=== PATIENT | male | born 1945 | race Caucasian/White ===

== ENCOUNTER 2016-05-29 21:13 | Emergency (ER) | payer MEDICARE, OTHER ==
[~2016-05-29 21:13] MED LIST: COUMADIN2.5 MG PO; LOPRESSOR 225 MG/TAB PO; WARFARIN SOD5 MG PO; ZOCOR 40MG40 MG PO
== END 2016-05-29 23:15 | disposition home or self-care (01) ==
LOC: ED 21:13
DX: I48.91 Unspecified atrial fibrillation (principal); R07.9 Chest pain, unspecified; I10 Essential (primary) hypertension; Z87.891 Personal history of nicotine dependence

== ENCOUNTER → 2016-05-30 | Outpatient (CLI) | payer MEDICARE, OTHER | LOC: VAS 16:08 | DX: R07.89 Other chest pain (principal); I36.1 Nonrheumatic tricuspid (valve) insufficiency ==

== ENCOUNTER → 2016-06-07 | Outpatient (CLI) | payer MEDICARE, OTHER | LOC: CARDREHAB 09:47 | DX: R07.89 Other chest pain (principal); E78.5 Hyperlipidemia, unspecified; Z82.49 Family history of ischemic heart disease and other diseases of the circulatory system; Z87.891 Personal history of nicotine dependence; I20.8 Other forms of angina pectoris; R06.00 Dyspnea, unspecified; I48.91 Unspecified atrial fibrillation; I45.19 Other right bundle-branch block | CPT/HCPCS: A9500 ==

== ENCOUNTER → 2016-06-17 | Outpatient (CLI) | payer MEDICARE | LOC: LAB 13:36 | DX: Z51.81 Encounter for therapeutic drug level monitoring (principal); Z79.01 Long term (current) use of anticoagulants; I48.1 Persistent atrial fibrillation ==

== ENCOUNTER → 2016-07-29 | Outpatient (CLI) | payer MEDICARE | LOC: LAB 08:41 | DX: Z51.81 Encounter for therapeutic drug level monitoring (principal); Z79.01 Long term (current) use of anticoagulants; I48.91 Unspecified atrial fibrillation ==

== ENCOUNTER → 2016-08-27 | Outpatient (CLI) | payer MEDICARE | LOC: LAB 10:10 | DX: Z51.81 Encounter for therapeutic drug level monitoring (principal); Z79.01 Long term (current) use of anticoagulants; I48.91 Unspecified atrial fibrillation ==

== ENCOUNTER → 2016-10-04 | Outpatient (CLI) | payer MEDICARE ==
[2016-05-29 23:15] VITALS: BP 110/82
== END ==
LOC: LAB 10:26
DX: Z51.81 Encounter for therapeutic drug level monitoring (principal); Z79.01 Long term (current) use of anticoagulants; I48.91 Unspecified atrial fibrillation

== ENCOUNTER → 2016-11-01 | Outpatient (CLI) | payer MEDICARE ==
[2016-05-29 23:15] VITALS: BP 110/82
== END ==
LOC: LAB 14:51
DX: Z51.81 Encounter for therapeutic drug level monitoring (principal); Z79.01 Long term (current) use of anticoagulants; I48.91 Unspecified atrial fibrillation

== ENCOUNTER → 2016-12-03 | Outpatient (CLI) | payer MEDICARE ==
[2016-05-29 23:15] VITALS: BP 110/82
== END ==
LOC: LAB 15:27
DX: G62.9 Polyneuropathy, unspecified (principal); I48.91 Unspecified atrial fibrillation

== ENCOUNTER → 2017-01-15 | Outpatient (CLI) | payer MEDICARE ==
[2016-05-29 23:15] VITALS: BP 110/82
== END ==
LOC: LAB 08:54
DX: I48.91 Unspecified atrial fibrillation (principal)

== ENCOUNTER → 2017-02-24 | Outpatient (CLI) | payer MEDICARE ==
[2016-05-29 23:15] VITALS: BP 110/82
== END ==
LOC: LAB 08:20
DX: I48.91 Unspecified atrial fibrillation (principal)

== ENCOUNTER → 2017-04-04 | Outpatient (CLI) | payer MEDICARE ==
[2016-05-29 23:15] VITALS: BP 110/82
[2017-04-04 09:12] LABS: PROTHROMBIN TIME 24.3 SECONDS (9.0-12.0)
== END ==
LOC: LAB 08:28
PROVIDERS: Internal Medicine
DX: I48.91 Unspecified atrial fibrillation (principal)

== ENCOUNTER → 2017-05-02 | Outpatient (CLI) | payer MEDICARE ==
[2016-05-29 23:15] VITALS: BP 110/82
[2017-05-02 11:30] LABS: PROTHROMBIN TIME 23.3 SECONDS (9.0-12.0)
== END ==
LOC: LAB 11:03
PROVIDERS: Internal Medicine
DX: I48.91 Unspecified atrial fibrillation (principal)

== ENCOUNTER → 2017-05-20 | Outpatient (CLI) | payer MEDICARE, OTHER ==
[~2017-05-20] VITALS: Ht 188 cm; Wt 86.4 kg
[~2017-05-20] MED LIST changes: +BREO ELLIPTA1 POW IH; +CARTIA XT180 MG PO; +RT SPIRIVA INH18 MCG IH
[2017-05-20 08:47] LABS: HEMATOCRIT 44.7 % (42.0-52.0); HEMOGLOBIN 14.2 g/dL (13.5-18.0); MEAN CELL VOLUME 98 fl (78-100); MEAN CORPUSCULAR HEMOGLOBIN 31 pg (27-31); MEAN CORPUSCULAR HGB CONC 32 g/dL (33-37); MEAN PLATELET VOLUME 10.9 fl (7.4-10.4); PLATELET COUNT 228 K/mm3 (130-400); RED BLOOD COUNT 4.55 M/mm3 (4.20-5.60); RED CELL DISTRIBUTION WIDTH 12.9 % (11.5-14.5); WHITE BLOOD COUNT 6.7 K/mm3 (4.8-10.8)
[2017-05-20 09:00] LABS: LYMPHOCYTE 16 % (20-51); MONOCYTE 12 % (3-10); NEUTROPHILS 72 % (42-75)
[2017-05-20 12:45] VITALS: BP 143/97
== END ==
LOC: AMSURD 08:21 → RAD 08:21
PROVIDERS: Nurse Practitioner Family
DX: R05 Cough (principal); R53.81 Other malaise; R06.02 Shortness of breath; R79.89 Other specified abnormal findings of blood chemistry

== ENCOUNTER → 2017-05-27 | Outpatient (CLI) | payer MEDICARE, OTHER ==
[2017-05-20 12:45] VITALS: BP 143/97
[2017-05-27 10:49] LABS: PROTHROMBIN TIME 18.5 SECONDS (9.0-12.0)
[2017-05-27 10:50] LABS: BUN/CREATININE RATIO 16.9 (6.0-26.0); CALCIUM 9.3 mg/dL (8.4-10.2); POTASSIUM 4.7 mmol/L (3.6-5.0)
== END ==
LOC: LAB 10:09
PROVIDERS: Nurse Practitioner Family
DX: I50.9 Heart failure, unspecified (principal)

== ENCOUNTER → 2017-07-04 | Outpatient (CLI) | payer MEDICARE, OTHER ==
[2017-05-20 12:45] VITALS: BP 143/97
[2017-07-04 14:59] LABS: PROTHROMBIN TIME 28.8 SECONDS (9.0-12.0)
== END ==
LOC: LAB 11:54
PROVIDERS: Internal Medicine
DX: I48.91 Unspecified atrial fibrillation (principal); Z88.0 Allergy status to penicillin

== ENCOUNTER 2017-08-20 15:06 | Outpatient (RCR) | payer MEDICARE, OTHER ==
[2017-05-20 12:45] VITALS: BP 143/97
[~2017-08-20 15:06] MED LIST changes: +BREO ELLIPTA 21 EACH IH; -BREO ELLIPTA1 POW IH
[2017-09-12] MEDS ORDERED: TUSSIONEX PENN115 ML PO (06:03)
[2017-09-12] MEDS ORDERED: TESSALON PERLE100 M1 PO (06:03)
[2017-11-02] MEDS ORDERED: CLOPIDOGREL75 M2 PO (16:11)
[2017-11-02] MEDS ORDERED: LISINOPRIL2.5 MG PO (16:13)
[2017-11-02] MEDS ORDERED: PROAIR HFA0.09 MG/AC IH (16:14)
[2017-11-02] MEDS ORDERED: ADULT ASPIRIN81 MG PO (16:14)
[2017-11-02] MEDS ORDERED: TYLENOL PM EXTR1 TA1 PO (16:17)
[2017-11-02] MEDS ORDERED: PEPCID 20MG TAB20 MG PO (16:17)
[2017-11-02] MEDS ORDERED: PERCOCET 325 MG1 TA2 PO (17:51)
[2017-11-02] MEDS ORDERED: CYCLOBENZAPRINE10 M1 PO (17:51)
== END 2017-11-18 | disposition home or self-care (01) ==
LOC: CARDREHAB
DX: Z48.812 Encounter for surgical aftercare following surgery on the circulatory system (principal); Z95.2 Presence of prosthetic heart valve

== ENCOUNTER → 2017-08-21 | Outpatient (CLI) | payer MEDICARE, OTHER ==
[2017-05-20 12:45] VITALS: BP 143/97
[~2017-08-21] MED LIST changes: -BREO ELLIPTA 21 EACH IH; +BREO ELLIPTA1 POW IH
== END ==
LOC: VAS 16:01
DX: I34.0 Nonrheumatic mitral (valve) insufficiency (principal); I77.1 Stricture of artery

== ENCOUNTER → 2017-09-02 | Outpatient (CLI) | payer MEDICARE, OTHER ==
[2017-05-20 12:45] VITALS: BP 143/97
[2017-09-02 20:28] LABS: PROTHROMBIN TIME 22.3 SECONDS (9.0-12.0)
== END ==
LOC: LAB 14:58
PROVIDERS: Internal Medicine
DX: I48.1 Persistent atrial fibrillation (principal)

== ENCOUNTER → 2017-09-10 | Outpatient (CLI) | payer MEDICARE, OTHER ==
[2017-05-20 12:45] VITALS: BP 143/97
[~2017-09-10] MED LIST changes: +TESSALON PERLE100 M1 PO; +TUSSIONEX PENN115 ML PO
== END ==
LOC: LAB 14:51
DX: R91.1 Solitary pulmonary nodule (principal)

== ENCOUNTER 2017-09-12 04:30 | Emergency (ER) | payer MEDICARE, OTHER ==
[~2017-09-12] VITALS: Ht 188 cm; Wt 86.4 kg
[~2017-09-12 04:30] MED LIST changes: -TESSALON PERLE100 M1 PO; -TUSSIONEX PENN115 ML PO
[2017-09-12 05:10] LABS: EOS # 0.2 (0.04-0.40); EOS % 2.5 % (0.0-4.0); HEMATOCRIT 32.6 % (42.0-52.0); HEMOGLOBIN 10.1 g/dL (13.5-18.0); MEAN CELL VOLUME 98 fl (78-100); MEAN CORPUSCULAR HEMOGLOBIN 30 pg (27-31); MEAN CORPUSCULAR HGB CONC 31 g/dL (33-37); MEAN PLATELET VOLUME 10.5 fl (7.4-10.4); MONO # 0.7 (0.20-0.80); NEU # 4.2 (1.40-6.50); PLATELET COUNT 212 K/mm3 (130-400); RED BLOOD COUNT 3.33 M/mm3 (4.20-5.60); RED CELL DISTRIBUTION WIDTH 13.9 % (11.5-14.5)
[2017-09-12 05:26] LABS: TROPONIN-I < 0.03 ng/mL (0.00-0.06)
[2017-09-12 05:29] LABS: PROTHROMBIN TIME 28.2 SECONDS (9.0-12.0)
[2017-09-12 05:33] LABS: BUN/CREATININE RATIO 26.6 (6.0-26.0); CALCIUM 9.4 mg/dL (8.4-10.2); POTASSIUM 4.2 mmol/L (3.6-5.0); TOTAL BILIRUBIN 0.6 mg/dL (0.2-1.3); TOTAL PROTEIN 7.4 g/dL (6.3-8.2)
[2017-09-12] MEDS ORDERED: TUSSIONEX PENN115 ML PO (06:03)
[2017-09-12] MEDS ORDERED: TESSALON PERLE100 M1 PO (06:03)
[2017-09-12 06:10] VITALS: BP 117/71
== END 2017-09-12 06:10 | disposition home or self-care (01) ==
LOC: ED 04:30
PROVIDERS: Nurse Practitioner Family
DX: J44.0 Chronic obstructive pulmonary disease with (acute) lower respiratory infection (principal); J20.9 Acute bronchitis, unspecified; I48.91 Unspecified atrial fibrillation; I10 Essential (primary) hypertension; E78.5 Hyperlipidemia, unspecified; K21.9 Gastro-esophageal reflux disease without esophagitis; Z79.01 Long term (current) use of anticoagulants; Z98.890 Other specified postprocedural states; Z88.0 Allergy status to penicillin; Z87.891 Personal history of nicotine dependence; F41.9 Anxiety disorder, unspecified

== ENCOUNTER → 2017-09-26 | Outpatient (CLI) | payer MEDICARE, OTHER ==
[2017-09-12 06:10] VITALS: BP 117/71
[~2017-09-26] MED LIST changes: +TESSALON PERLE100 M1 PO; +TUSSIONEX PENN115 ML PO
[2017-09-26 10:09] LABS: PROTHROMBIN TIME 29.7 SECONDS (9.0-12.0)
== END ==
LOC: LAB 09:38
PROVIDERS: Internal Medicine
DX: I48.91 Unspecified atrial fibrillation (principal)

== ENCOUNTER 2017-11-02 15:24 | Emergency (ER) | payer MEDICARE, OTHER ==
[~2017-11-02] VITALS: Ht 188 cm; Wt 87.2 kg
[~2017-11-02 15:24] MED LIST changes: +BREO ELLIPTA 21 EACH IH; -BREO ELLIPTA1 POW IH
[2017-11-02] MEDS ORDERED: CLOPIDOGREL75 M2 PO (16:11)
[2017-11-02] MEDS ORDERED: LISINOPRIL2.5 MG PO (16:13)
[2017-11-02] MEDS ORDERED: PROAIR HFA0.09 MG/AC IH (16:14)
[2017-11-02] MEDS ORDERED: ADULT ASPIRIN81 MG PO (16:14)
[2017-11-02 16:15] LABS: HEMATOCRIT 32.9 % (42.0-52.0); HEMOGLOBIN 10.1 g/dL (13.5-18.0); MEAN CELL VOLUME 96 fl (78-100); MEAN CORPUSCULAR HEMOGLOBIN 29 pg (27-31); MEAN CORPUSCULAR HGB CONC 31 g/dL (33-37); MEAN PLATELET VOLUME 11.6 fl (7.4-10.4); PLATELET COUNT 183 K/mm3 (130-400); RED BLOOD COUNT 3.43 M/mm3 (4.20-5.60); RED CELL DISTRIBUTION WIDTH 14.9 % (11.5-14.5); WHITE BLOOD COUNT 6.1 K/mm3 (4.8-10.8)
[2017-11-02] MEDS ORDERED: PEPCID 20MG TAB20 MG PO (16:17)
[2017-11-02] MEDS ORDERED: TYLENOL PM EXTR1 TA1 PO (16:17)
[2017-11-02 16:31] LABS: BUN/CREATININE RATIO 18.2 (6.0-26.0); CALCIUM 9.1 mg/dL (8.4-10.2); POTASSIUM 4.1 mmol/L (3.6-5.0); TOTAL BILIRUBIN 0.8 mg/dL (0.2-1.3); TOTAL PROTEIN 7.7 g/dL (6.3-8.2)
[2017-11-02 16:37] LABS: LYMPHOCYTE 13 % (20-51); MONOCYTE 12 % (3-10); NEUTROPHILS 73 % (42-75); PROTHROMBIN TIME 11.7 SECONDS (9.0-12.0)
[2017-11-02] MEDS ORDERED: CYCLOBENZAPRINE10 M1 PO (17:51)
[2017-11-02] MEDS ORDERED: PERCOCET 325 MG1 TA2 PO (17:51)
[2017-11-02 18:08] VITALS: BP 172/77
== END 2017-11-02 18:11 | disposition home or self-care (01) ==
LOC: ED 15:24
PROVIDERS: Family Medicine
DX: M54.2 Cervicalgia (principal); M62.838 Other muscle spasm; I48.91 Unspecified atrial fibrillation; Z79.01 Long term (current) use of anticoagulants; E78.5 Hyperlipidemia, unspecified; Z79.82 Long term (current) use of aspirin; Z79.899 Other long term (current) drug therapy; Z79.02 Long term (current) use of antithrombotics/antiplatelets; Z95.820 Peripheral vascular angioplasty status with implants and grafts
CPT/HCPCS: J1885; J2360

== ENCOUNTER 2017-11-19 09:00 | Outpatient (RCR) | payer MEDICARE, OTHER ==
[~2017-11-19 09:00] MED LIST changes: +ADULT ASPIRIN81 MG PO; +CLOPIDOGREL75 M2 PO; +CYCLOBENZAPRINE10 M1 PO; +LISINOPRIL2.5 MG PO; +PEPCID 20MG TAB20 MG PO; +PERCOCET 325 MG1 TA2 PO; +PROAIR HFA0.09 MG/AC IH; +TYLENOL PM EXTR1 TA1 PO
[2017-12-08] MEDS ORDERED: POTASSIUM CHLO10 ME7 PO (14:57)
[2017-12-08] MEDS ORDERED: ZESTRIL2.5 M1 PO (15:00)
== END 2017-11-21 11:00 | disposition still patient (30) ==
LOC: CARDREHAB 09:00
DX: Z48.812 Encounter for surgical aftercare following surgery on the circulatory system (principal); Z95.2 Presence of prosthetic heart valve

== ENCOUNTER → 2017-11-21 | Outpatient (CLI) | payer MEDICARE, OTHER ==
[2017-11-02 18:08] VITALS: BP 172/77
[2017-11-21 12:52] LABS: PROTHROMBIN TIME 21.9 SECONDS (9.0-12.0)
== END ==
LOC: LAB 11:55
PROVIDERS: Internal Medicine
DX: I48.1 Persistent atrial fibrillation (principal)

== ENCOUNTER → 2017-12-08 | Outpatient (CLI) | payer MEDICARE ==
[~2017-12-08] VITALS: Ht 188 cm; Wt 86.8 kg
[~2017-12-08] MED LIST changes: +POTASSIUM CHLO10 ME7 PO; +ZESTRIL2.5 M1 PO
[2017-12-08 11:50] VITALS: BP 110/72
[2017-12-08 11:53] LABS: EOS # 0.1 (0.04-0.40); EOS % 2.1 % (0.0-4.0); HEMATOCRIT 26.6 % (42.0-52.0); HEMOGLOBIN 8.1 g/dL (13.5-18.0); LYMPH# 0.8 (1.50-4.00); MEAN CELL VOLUME 100 fl (78-100); MEAN CORPUSCULAR HEMOGLOBIN 31 pg (27-31); MEAN CORPUSCULAR HGB CONC 31 g/dL (33-37); MEAN PLATELET VOLUME 10.5 fl (7.4-10.4); MONO # 0.6 (0.20-0.80); NEU # 4.7 (1.40-6.50); PLATELET COUNT 227 K/mm3 (130-400); RED BLOOD COUNT 2.66 M/mm3 (4.20-5.60); RED CELL DISTRIBUTION WIDTH 15.9 % (11.5-14.5); WHITE BLOOD COUNT 6.3 K/mm3 (4.8-10.8)
[2017-12-08 12:12] LABS: BUN/CREATININE RATIO 27.1 (6.0-26.0); CALCIUM 9.2 mg/dL (8.4-10.2); POTASSIUM 4.7 mmol/L (3.6-5.0); TOTAL BILIRUBIN 0.7 mg/dL (0.2-1.3); TOTAL PROTEIN 7.3 g/dL (6.3-8.2)
[2017-12-08 14:21] LABS: ERYTHROCYTE SEDIMENTATION RATE 50 mm/hr (0-20)
[2017-12-08 23:07] LABS: TESTOSTERONE 234 ng/dL (221-716)
== END ==
LOC: AMSURD 11:34
PROVIDERS: Internal Medicine
DX: D64.9 Anemia, unspecified (principal); I25.10 Atherosclerotic heart disease of native coronary artery without angina pectoris; R73.02 Impaired glucose tolerance (oral); R00.1 Bradycardia, unspecified

== ENCOUNTER → 2017-12-10 | Outpatient (CLI) | payer MEDICARE ==
[2017-12-08 11:50] VITALS: BP 110/72
[~2017-12-10] MED LIST changes: +ASPIR LOW81 MG PO
== END ==
LOC: LAB 14:05
DX: D64.9 Anemia, unspecified (principal)

== ENCOUNTER 2017-12-11 16:49 | Emergency (ER) | payer MEDICARE ==
[~2017-12-11] VITALS: Ht 188 cm; Wt 81.8 kg
[~2017-12-11 16:49] MED LIST changes: -ASPIR LOW81 MG PO
[2017-12-11] MEDS ORDERED: CARTIA XT180 MG PO (17:32)
[2017-12-11] MEDS ORDERED: ASPIR LOW81 MG PO (17:32)
[2017-12-11 17:48] VITALS: BP 127/61
[2017-12-11 18:01] LABS: MEAN CELL VOLUME 100 fl (78-100); MEAN CORPUSCULAR HEMOGLOBIN 30 pg (27-31); MEAN CORPUSCULAR HGB CONC 30 g/dL (33-37); MEAN PLATELET VOLUME 11.3 fl (7.4-10.4); PLATELET COUNT 257 K/mm3 (130-400); RED CELL DISTRIBUTION WIDTH 16.6 % (11.5-14.5); WHITE BLOOD COUNT 6.7 K/mm3 (4.8-10.8)
[2017-12-11 18:14] LABS: BUN/CREATININE RATIO 30.4 (6.0-26.0); CALCIUM 8.9 mg/dL (8.4-10.2); POTASSIUM 4.5 mmol/L (3.6-5.0); TOTAL BILIRUBIN 0.6 mg/dL (0.2-1.3); TOTAL PROTEIN 7.3 g/dL (6.3-8.2)
[2017-12-11 18:22] LABS: D-DIMER 0.07 mg/L FEU (0.15-0.50)
[2017-12-11 18:25] LABS: CKMB ISOENZYME 1.1 ng/mL (0.6-3.5)
[2017-12-11 18:29] LABS: HEMOGLOBIN 7.6 g/dL (13.5-18.0)
[2017-12-11 18:30] LABS: LYMPHOCYTE 12 % (20-51); MONOCYTE 9 % (3-10); NEUTROPHILS 78 % (42-75)
[2017-12-11 18:31] LABS: TROPONIN-I < 0.03 ng/mL (0.00-0.06)
[2017-12-11 18:49] LABS: PROTHROMBIN TIME 15.3 SECONDS (9.0-12.0)
[2017-12-11 22:02] LABS: URINE APPEARANCE CLEAR; URINE BILIRUBIN NEGATIVE (NEGATIVE); URINE BLOOD NEGATIVE (NEGATIVE); URINE COLOR YELLOW; URINE GLUCOSE NEGATIVE (NEGATIVE); URINE KETONE NEGATIVE (NEGATIVE); URINE LEUKOCYTE ESTERASE NEGATIVE (NEGATIVE); URINE NITRATE NEGATIVE (NEGATIVE); URINE PROTEIN(semi-quant) NEGATIVE (NEGATIVE); URINE UROBILINOGEN NORMAL (NORMAL); URINE WBC 0-1 /hpf (0-3)
[2017-12-11 23:18] VITALS: BP 117/59
== END 2017-12-11 23:15 | disposition short-term general hospital (02) ==
LOC: ED 16:49 → MED/SURG 20:28 → ED 23:15
PROVIDERS: Nurse Practitioner Family
DX: D64.9 Anemia, unspecified (principal); I44.1 Atrioventricular block, second degree; I45.2 Bifascicular block; R19.5 Other fecal abnormalities; I48.91 Unspecified atrial fibrillation; R73.03 Prediabetes; J43.9 Emphysema, unspecified; I38 Endocarditis, valve unspecified; Z95.2 Presence of prosthetic heart valve; Z79.82 Long term (current) use of aspirin; Z79.01 Long term (current) use of anticoagulants; Z87.891 Personal history of nicotine dependence; Z79.02 Long term (current) use of antithrombotics/antiplatelets; Z79.899 Other long term (current) drug therapy
CPT/HCPCS: J7030

== ENCOUNTER → 2017-12-16 | Outpatient (CLI) | payer MEDICARE, OTHER ==
[2017-12-11 23:18] VITALS: BP 117/59
[~2017-12-16] MED LIST changes: +ASPIR LOW81 MG PO
[2017-12-16 11:34] LABS: ALBUMIN 3.6 g/dL (3.5-5.0); BUN/CREATININE RATIO 17.1 (6.0-26.0); CALCIUM 8.6 mg/dL (8.4-10.2); POTASSIUM 4.1 mmol/L (3.6-5.0); TOTAL BILIRUBIN 1.3 mg/dL (0.2-1.3); TOTAL PROTEIN 6.8 g/dL (6.3-8.2)
[2017-12-16 11:38] LABS: EOS # 0.2 (0.04-0.40); EOS % 3.4 % (0.0-4.0); LYMPH# 0.9 (1.50-4.00); MEAN CELL VOLUME 99 fl (78-100); MEAN CORPUSCULAR HEMOGLOBIN 31 pg (27-31); MEAN CORPUSCULAR HGB CONC 31 g/dL (33-37); MEAN PLATELET VOLUME 11.1 fl (7.4-10.4); MONO # 0.4 (0.20-0.80); NEU # 3.3 (1.40-6.50); PLATELET COUNT 201 K/mm3 (130-400); RED BLOOD COUNT 2.93 M/mm3 (4.20-5.60); RED CELL DISTRIBUTION WIDTH 16.7 % (11.5-14.5); WHITE BLOOD COUNT 4.8 K/mm3 (4.8-10.8)
== END ==
LOC: LAB 10:55
PROVIDERS: Internal Medicine
DX: R53.83 Other fatigue (principal); D64.9 Anemia, unspecified

== ENCOUNTER → 2017-12-22 | Outpatient (CLI) | payer MEDICARE, OTHER ==
[2017-12-11 23:18] VITALS: BP 117/59
[2017-12-22 10:41] LABS: HEMOGLOBIN 9.8 g/dL (13.5-18.0); MEAN CELL VOLUME 100 fl (78-100); MEAN CORPUSCULAR HEMOGLOBIN 30 pg (27-31); MEAN CORPUSCULAR HGB CONC 30 g/dL (33-37); MEAN PLATELET VOLUME 10.8 fl (7.4-10.4); PLATELET COUNT 243 K/mm3 (130-400); RED BLOOD COUNT 3.31 M/mm3 (4.20-5.60); RED CELL DISTRIBUTION WIDTH 15.9 % (11.5-14.5)
[2017-12-22 12:22] LABS: LYMPHOCYTE 15 % (20-51); NEUTROPHILS 69 % (42-75)
[2017-12-22 12:23] LABS: MONOCYTE 14 % (3-10)
== END ==
LOC: LAB 10:19
PROVIDERS: Internal Medicine
DX: K92.2 Gastrointestinal hemorrhage, unspecified (principal); I25.10 Atherosclerotic heart disease of native coronary artery without angina pectoris

== ENCOUNTER → 2018-01-12 | Outpatient (CLI) | payer MEDICARE, OTHER ==
[2018-01-12 09:06] LABS: PROTHROMBIN TIME 9.6 SECONDS (9.0-12.0)
[2018-01-12 09:24] LABS: EOS # 0.2 (0.04-0.40); EOS % 3.8 % (0.0-4.0); HEMATOCRIT 33.8 % (42.0-52.0); HEMOGLOBIN 10.2 g/dL (13.5-18.0); LYMPH# 0.8 (1.50-4.00); MEAN CELL VOLUME 97 fl (78-100); MEAN CORPUSCULAR HEMOGLOBIN 29 pg (27-31); MEAN CORPUSCULAR HGB CONC 30 g/dL (33-37); MEAN PLATELET VOLUME 11.8 fl (7.4-10.4); MONO # 0.6 (0.20-0.80); NEU # 3.7 (1.40-6.50); PLATELET COUNT 197 K/mm3 (130-400); RED BLOOD COUNT 3.48 M/mm3 (4.20-5.60); RED CELL DISTRIBUTION WIDTH 15.3 % (11.5-14.5); WHITE BLOOD COUNT 5.2 K/mm3 (4.8-10.8)
[2018-01-12 22:52] LABS: TESTOSTERONE 272 ng/dL (221-716)
== END ==
LOC: LAB 08:17
PROVIDERS: Internal Medicine
DX: D64.9 Anemia, unspecified (principal); E29.1 Testicular hypofunction; E53.8 Deficiency of other specified B group vitamins; I48.91 Unspecified atrial fibrillation

== ENCOUNTER → 2018-02-09 | Outpatient (CLI) | payer MEDICARE, OTHER ==
[2018-02-09 09:27] LABS: EOS # 0.1 (0.04-0.40); HEMOGLOBIN 10.6 g/dL (13.5-18.0); LYMPH# 0.8 (1.50-4.00); MEAN CELL VOLUME 93 fl (78-100); MEAN CORPUSCULAR HEMOGLOBIN 29 pg (27-31); MEAN CORPUSCULAR HGB CONC 31 g/dL (33-37); MEAN PLATELET VOLUME 11.5 fl (7.4-10.4); MONO # 0.7 (0.20-0.80); PLATELET COUNT 217 K/mm3 (130-400); RED BLOOD COUNT 3.64 M/mm3 (4.20-5.60); RED CELL DISTRIBUTION WIDTH 14.7 % (11.5-14.5); WHITE BLOOD COUNT 5.6 K/mm3 (4.8-10.8)
[2018-02-09 23:26] LABS: TESTOSTERONE 294 ng/dL (221-716)
== END ==
LOC: LAB 09:02
PROVIDERS: Internal Medicine
DX: D64.9 Anemia, unspecified (principal); E29.1 Testicular hypofunction; E53.8 Deficiency of other specified B group vitamins

== ENCOUNTER 2018-02-18 08:21 | Outpatient (RCR) | payer MEDICARE, OTHER ==
[2018-02-12 10:35] VITALS: BP 134/66
[2018-02-12 12:00] VITALS: BP 139/63
[2018-02-13 08:30] VITALS: BP 143/60
[2018-02-13 09:50] VITALS: BP 136/68
[2018-02-16 08:35] VITALS: BP 134/54
[2018-02-16 09:40] VITALS: BP 142/56
[2018-02-17 08:32] VITALS: BP 124/67
[~2018-02-18] VITALS: Ht 188 cm; Wt 81.8 kg
[2018-02-18 09:55] VITALS: BP 158/78
[2018-02-18 09:56] VITALS: BP 119/72
== END 2018-02-18 10:00 | disposition home or self-care (01) ==
LOC: AMSURD 08:21
DX: E61.1 Iron deficiency (principal); K92.2 Gastrointestinal hemorrhage, unspecified
CPT/HCPCS: J2916

== ENCOUNTER 2018-03-04 08:30 | Outpatient (RCR) | payer MEDICARE, OTHER | END 2018-03-04 09:00 | disposition home or self-care (01) | LOC: PT 08:30 | DX: R29.898 Other symptoms and signs involving the musculoskeletal system (principal); R27.0 Ataxia, unspecified; K92.2 Gastrointestinal hemorrhage, unspecified; J43.9 Emphysema, unspecified; I25.10 Atherosclerotic heart disease of native coronary artery without angina pectoris; D64.9 Anemia, unspecified; Z95.2 Presence of prosthetic heart valve | CPT/HCPCS: G8978-GP; G8979-GP ==

== ENCOUNTER → 2018-03-18 | Outpatient (CLI) | payer MEDICARE, OTHER ==
[2018-02-18 09:56] VITALS: BP 119/72
[2018-03-18 09:25] LABS: EOS # 0.1 (0.04-0.40); EOS % 1.9 % (0.0-4.0); HEMATOCRIT 37.8 % (42.0-52.0); HEMOGLOBIN 11.7 g/dL (13.5-18.0); LYMPH# 0.9 (1.50-4.00); MEAN CELL VOLUME 96 fl (78-100); MEAN CORPUSCULAR HEMOGLOBIN 30 pg (27-31); MEAN CORPUSCULAR HGB CONC 31 g/dL (33-37); MEAN PLATELET VOLUME 11.2 fl (7.4-10.4); MONO # 0.5 (0.20-0.80); NEU # 3.2 (1.40-6.50); PLATELET COUNT 178 K/mm3 (130-400); RED BLOOD COUNT 3.96 M/mm3 (4.20-5.60); RED CELL DISTRIBUTION WIDTH 16.2 % (11.5-14.5); WHITE BLOOD COUNT 4.7 K/mm3 (4.8-10.8)
== END ==
LOC: LAB 08:21
PROVIDERS: Internal Medicine
DX: K92.2 Gastrointestinal hemorrhage, unspecified (principal); I25.10 Atherosclerotic heart disease of native coronary artery without angina pectoris

== ENCOUNTER → 2018-09-01 | Outpatient (CLI) | payer MEDICARE, OTHER ==
[2018-09-01 17:29] LABS: ALBUMIN 4.3 g/dL (3.5-5.0); CALCIUM 9.4 mg/dL (8.4-10.2); POTASSIUM 5.5 mmol/L (3.6-5.0); TOTAL BILIRUBIN 0.9 mg/dL (0.2-1.3); TOTAL PROTEIN 7.3 g/dL (6.3-8.2)
[2018-09-01 19:08] LABS: HEMATOCRIT 37.1 % (42.0-52.0); HEMOGLOBIN 11.4 g/dL (13.5-18.0); MEAN CELL VOLUME 99 fl (78-100); MEAN CORPUSCULAR HEMOGLOBIN 30 pg (27-31); MEAN CORPUSCULAR HGB CONC 31 g/dL (33-37); PLATELET COUNT 173 K/mm3 (130-400); RED BLOOD COUNT 3.75 M/mm3 (4.20-5.60); RED CELL DISTRIBUTION WIDTH 13.6 % (11.5-14.5); WHITE BLOOD COUNT 6.4 K/mm3 (4.8-10.8)
[2018-09-01 19:17] LABS: MEAN PLATELET VOLUME 12.5 fl (7.4-10.4)
[2018-09-01 20:09] LABS: ERYTHROCYTE SEDIMENTATION RATE 14 mm/hr (0-20); LYMPHOCYTE 12 % (20-51); MONOCYTE 11 % (3-10); NEUTROPHILS 75 % (42-75)
== END ==
LOC: LAB 16:43
PROVIDERS: Internal Medicine
DX: R10.32 Left lower quadrant pain (principal)

== ENCOUNTER → 2018-09-02 | Outpatient (CLI) | payer MEDICARE, OTHER | LOC: RAD 07:47 | DX: N20.0 Calculus of kidney (principal); K56.1 Intussusception; N28.1 Cyst of kidney, acquired | CPT/HCPCS: Q9967 ==

== ENCOUNTER → 2019-01-18 | Outpatient (CLI) | payer MEDICARE, OTHER ==
[2019-01-18 17:32] LABS: ALBUMIN 4.5 g/dL (3.4-4.8); POTASSIUM 4.8 mmol/L (3.5-5.1)
[2019-01-18 17:33] LABS: CALCIUM 9.6 mg/dL (8.3-10.5)
[2019-01-18 17:34] LABS: TOTAL PROTEIN 7.8 g/dL (6.2-8.1)
[2019-01-18 17:36] LABS: TOTAL BILIRUBIN 0.9 mg/dL (0.2-1.2)
[2019-01-18 18:18] LABS: HEMATOCRIT 40.4 % (42.0-52.0); HEMOGLOBIN 12.7 g/dL (13.5-18.0); MEAN CELL VOLUME 98 fl (78-100); MEAN CORPUSCULAR HEMOGLOBIN 31 pg (27-31); MEAN CORPUSCULAR HGB CONC 31 g/dL (33-37); PLATELET COUNT 174 K/mm3 (130-400); RED BLOOD COUNT 4.12 M/mm3 (4.20-5.60); RED CELL DISTRIBUTION WIDTH 13.7 % (11.5-14.5); WHITE BLOOD COUNT 5.7 K/mm3 (4.8-10.8)
[2019-01-18 18:32] LABS: LYMPHOCYTE 12 % (20-51); MONOCYTE 12 % (3-10); NEUTROPHILS 72 % (42-75)
== END ==
LOC: LAB 17:07
PROVIDERS: Internal Medicine
DX: K92.2 Gastrointestinal hemorrhage, unspecified (principal); I25.10 Atherosclerotic heart disease of native coronary artery without angina pectoris; R53.83 Other fatigue; D64.9 Anemia, unspecified

== ENCOUNTER → 2019-02-19 | Outpatient (CLI) | payer MEDICARE, OTHER ==
[2019-02-19 23:12] LABS: TESTOSTERONE 313 ng/dL (221-716)
== END ==
LOC: LAB 10:01
PROVIDERS: Internal Medicine
DX: Z12.5 Encounter for screening for malignant neoplasm of prostate (principal); E29.1 Testicular hypofunction; E53.8 Deficiency of other specified B group vitamins; D64.9 Anemia, unspecified; R73.02 Impaired glucose tolerance (oral); R00.1 Bradycardia, unspecified; I25.10 Atherosclerotic heart disease of native coronary artery without angina pectoris

== ENCOUNTER → 2019-10-26 | Outpatient (CLI) | payer MEDICARE, OTHER ==
[2019-10-26 08:19] LABS: EOS # 0.2 (0.04-0.40); EOS % 3.4 % (0.0-4.0); HEMATOCRIT 34.3 % (42.0-52.0); HEMOGLOBIN 10.5 g/dL (13.5-18.0); LYMPH# 0.8 (1.50-4.00); MEAN CELL VOLUME 99 fl (78-100); MEAN CORPUSCULAR HEMOGLOBIN 30 pg (27-31); MEAN CORPUSCULAR HGB CONC 31 g/dL (33-37); MEAN PLATELET VOLUME 10.5 fl (7.4-10.4); MONO # 0.6 (0.20-0.80); NEU # 3.2 (1.40-6.50); PLATELET COUNT 176 K/mm3 (130-400); RED BLOOD COUNT 3.48 M/mm3 (4.20-5.60); RED CELL DISTRIBUTION WIDTH 12.9 % (11.5-14.5); WHITE BLOOD COUNT 4.8 K/mm3 (4.8-10.8)
[2019-10-26 08:26] LABS: ALBUMIN 4.1 g/dL (3.4-4.8)
[2019-10-26 08:27] LABS: POTASSIUM 4.6 mmol/L (3.5-5.1)
[2019-10-26 08:28] LABS: CALCIUM 9.3 mg/dL (8.3-10.5)
[2019-10-26 08:29] LABS: TOTAL PROTEIN 6.9 g/dL (6.2-8.1)
[2019-10-26 08:31] LABS: TOTAL BILIRUBIN 0.6 mg/dL (0.2-1.2)
== END ==
LOC: LAB 08:06
PROVIDERS: Internal Medicine
DX: D64.9 Anemia, unspecified (principal); I25.10 Atherosclerotic heart disease of native coronary artery without angina pectoris; K92.2 Gastrointestinal hemorrhage, unspecified; R73.02 Impaired glucose tolerance (oral); R00.1 Bradycardia, unspecified

== ENCOUNTER → 2019-11-26 | Outpatient (CLI) | payer MEDICARE, OTHER ==
[2019-11-26 10:28] LABS: POTASSIUM 4.7 mmol/L (3.5-5.1)
[2019-11-26 10:29] LABS: CALCIUM 8.8 mg/dL (8.3-10.5)
== END ==
LOC: LAB 10:04
PROVIDERS: Internal Medicine
DX: I25.10 Atherosclerotic heart disease of native coronary artery without angina pectoris (principal)

== ENCOUNTER → 2020-03-18 | Outpatient (CLI) | payer MEDICARE, OTHER ==
[2020-03-18 09:34] LABS: EOS # 0.2 (0.04-0.40); HEMATOCRIT 36.7 % (42.0-52.0); HEMOGLOBIN 11.4 g/dL (13.5-18.0); LYMPH# 0.9 (1.50-4.00); MEAN CELL VOLUME 98 fl (78-100); MEAN CORPUSCULAR HEMOGLOBIN 30 pg (27-31); MEAN CORPUSCULAR HGB CONC 31 g/dL (33-37); MEAN PLATELET VOLUME 11.4 fl (7.4-10.4); MONO # 0.5 (0.20-0.80); NEU # 3.7 (1.40-6.50); PLATELET COUNT 180 K/mm3 (130-400); RED BLOOD COUNT 3.76 M/mm3 (4.20-5.60); RED CELL DISTRIBUTION WIDTH 12.9 % (11.5-14.5); WHITE BLOOD COUNT 5.4 K/mm3 (4.8-10.8)
[2020-03-18 09:38] LABS: ALBUMIN 4.2 g/dL (3.4-4.8); POTASSIUM 4.5 mmol/L (3.5-5.1)
[2020-03-18 09:39] LABS: CALCIUM 9.1 mg/dL (8.3-10.5)
[2020-03-18 09:42] LABS: TOTAL BILIRUBIN 0.6 mg/dL (0.2-1.2)
[2020-03-18 18:34] LABS: TESTOSTERONE 330 ng/dL (221-716)
== END ==
LOC: LAB 09:15
PROVIDERS: Internal Medicine
DX: Z12.5 Encounter for screening for malignant neoplasm of prostate (principal); I25.10 Atherosclerotic heart disease of native coronary artery without angina pectoris; E29.1 Testicular hypofunction; E53.8 Deficiency of other specified B group vitamins; K92.2 Gastrointestinal hemorrhage, unspecified; K90.9 Intestinal malabsorption, unspecified; D64.9 Anemia, unspecified; R00.1 Bradycardia, unspecified; R73.02 Impaired glucose tolerance (oral)

== ENCOUNTER → 2020-05-23 | Outpatient (CLI) | payer MEDICARE, OTHER ==
[2020-05-23 15:10] LABS: EOS # 0.2 (0.04-0.40); EOS % 3.2 % (0.0-4.0); HEMATOCRIT 36.6 % (42.0-52.0); LYMPH# 0.9 (1.50-4.00); MEAN CELL VOLUME 99 fl (78-100); MEAN CORPUSCULAR HEMOGLOBIN 30 pg (27-31); MEAN CORPUSCULAR HGB CONC 30 g/dL (33-37); MEAN PLATELET VOLUME 10.9 fl (7.4-10.4); MONO # 0.7 (0.20-0.80); NEU # 3.9 (1.40-6.50); PLATELET COUNT 199 K/mm3 (130-400); RED BLOOD COUNT 3.71 M/mm3 (4.20-5.60); RED CELL DISTRIBUTION WIDTH 13.2 % (11.5-14.5); WHITE BLOOD COUNT 5.7 K/mm3 (4.8-10.8)
[2020-05-23 15:21] LABS: ALBUMIN 4.2 g/dL (3.4-4.8); POTASSIUM 4.9 mmol/L (3.5-5.1)
[2020-05-23 15:24] LABS: TOTAL PROTEIN 6.9 g/dL (6.2-8.1)
[2020-05-23 15:25] LABS: TOTAL BILIRUBIN 0.5 mg/dL (0.2-1.2)
== END ==
LOC: LAB 14:59
PROVIDERS: Internal Medicine
DX: D64.9 Anemia, unspecified (principal); I25.10 Atherosclerotic heart disease of native coronary artery without angina pectoris

== ENCOUNTER → 2020-05-24 | Outpatient (CLI) | payer MEDICARE, OTHER ==
[~2020-05-24] VITALS: Ht 188 cm; Wt 81.8 kg
[2020-05-24 09:05] VITALS: BP 155/76
[2020-05-24 11:12] VITALS: BP 144/76
== END ==
LOC: AMSURD 08:22
DX: N17.9 Acute kidney failure, unspecified (principal)
CPT/HCPCS: J7030

== ENCOUNTER → 2020-05-25 | Outpatient (CLI) | payer MEDICARE, OTHER ==
[2020-05-24 11:12] VITALS: BP 144/76
== END ==
LOC: RAD 07:26
DX: N28.1 Cyst of kidney, acquired (principal); N17.9 Acute kidney failure, unspecified

== ENCOUNTER → 2020-09-21 | Outpatient (CLI) | payer MEDICARE, OTHER ==
[2020-05-24 11:12] VITALS: BP 144/76
[2020-09-21 10:25] LABS: ALBUMIN 4.2 g/dL (3.4-4.8); HEMATOCRIT 35.5 % (42.0-52.0); HEMOGLOBIN 11.1 g/dL (13.5-18.0); MEAN CELL VOLUME 97 fl (78-100); MEAN CORPUSCULAR HEMOGLOBIN 30 pg (27-31); MEAN CORPUSCULAR HGB CONC 31 g/dL (33-37); MEAN PLATELET VOLUME 11.5 fl (7.4-10.4); PLATELET COUNT 177 K/mm3 (130-400); POTASSIUM 4.6 mmol/L (3.5-5.1); RED BLOOD COUNT 3.67 M/mm3 (4.20-5.60); RED CELL DISTRIBUTION WIDTH 13.5 % (11.5-14.5); WHITE BLOOD COUNT 4.9 K/mm3 (4.8-10.8)
[2020-09-21 10:26] LABS: CALCIUM 9.5 mg/dL (8.3-10.5)
[2020-09-21 10:28] LABS: TOTAL PROTEIN 7.4 g/dL (6.2-8.1)
[2020-09-21 10:30] LABS: TOTAL BILIRUBIN 0.8 mg/dL (0.2-1.2)
[2020-09-21 10:59] LABS: LYMPHOCYTE 11 % (20-51); MONOCYTE 10 % (3-10); NEUTROPHILS 74 % (42-75)
[2020-09-21 11:31] LABS: ERYTHROCYTE SEDIMENTATION RATE 37 mm/hr (0-20)
== END ==
LOC: LAB 09:52
PROVIDERS: Internal Medicine
DX: I25.10 Atherosclerotic heart disease of native coronary artery without angina pectoris (principal); D64.9 Anemia, unspecified; M62.81 Muscle weakness (generalized); N52.9 Male erectile dysfunction, unspecified

== ENCOUNTER → 2020-10-11 | Outpatient (CLI) | payer MEDICARE, OTHER ==
[2020-05-24 11:12] VITALS: BP 144/76
[2020-10-11 22:59] LABS: FOLLICLE STIMULATING HORMONE 7.4 mIU/mL (1.0-12.0); LUTENIZING HORMONE 3.5 mIU/mL (0.6-12.1); PROLACTIN AMS 7.4 ng/mL (3.5-19.4)
== END ==
LOC: LAB 09:27
PROVIDERS: Internal Medicine
DX: R79.89 Other specified abnormal findings of blood chemistry (principal)

== ENCOUNTER → 2020-12-27 | Outpatient (CLI) | payer MEDICARE, OTHER ==
[2020-12-27 10:00] LABS: MAGNESIUM 1.95 mg/dL (1.60-2.60)
== END ==
LOC: LAB 08:21
PROVIDERS: Internal Medicine
DX: I25.10 Atherosclerotic heart disease of native coronary artery without angina pectoris (principal)

== ENCOUNTER → 2020-12-29 | Outpatient (CLI) | payer MEDICARE, OTHER | LOC: RAD 07:00 | DX: J98.4 Other disorders of lung (principal); N20.0 Calculus of kidney; N28.9 Disorder of kidney and ureter, unspecified; K76.9 Liver disease, unspecified; R59.9 Enlarged lymph nodes, unspecified; R91.8 Other nonspecific abnormal finding of lung field; J43.9 Emphysema, unspecified | CPT/HCPCS: Q9967 ==

== ENCOUNTER → 2021-02-23 | Outpatient (CLI) | payer MEDICARE, OTHER ==
[2021-02-25 13:41] LABS: ANA SCREEN with REFLEX Positive (Negative)
[2021-02-26 09:05] LABS: ANTISCLERODERMA-70 AB IGG AMS
[2021-02-26 18:11] LABS: C-ANCA 14 U/mL (0-99)
[2021-02-27 19:25] LABS: ANGIOTENSIN CONVERTING ENZYME 17 U/L (16 - 85)
== END ==
LOC: LAB 08:56
PROVIDERS: Internal Medicine Pulmonary Disease
DX: J44.9 Chronic obstructive pulmonary disease, unspecified (principal)

== ENCOUNTER → 2021-03-27 | Outpatient (CLI) | payer MEDICARE, OTHER ==
[2021-03-27 09:49] LABS: POTASSIUM 4.2 mmol/L (3.5-5.1)
[2021-03-27 09:50] LABS: CALCIUM 9.6 mg/dL (8.3-10.5)
== END ==
LOC: LAB 08:13
PROVIDERS: Internal Medicine Pulmonary Disease
DX: J44.9 Chronic obstructive pulmonary disease, unspecified (principal)

== ENCOUNTER → 2021-05-01 | Outpatient (CLI) | payer MEDICARE, OTHER | LOC: LAB 09:59 | DX: Z20.822 Contact with and (suspected) exposure to COVID-19 (principal) ==

== ENCOUNTER → 2021-05-03 | Outpatient (CLI) | payer MEDICARE, OTHER ==
[2021-05-03 13:43] LABS: HEMATOCRIT 34.8 % (42.0-52.0); HEMOGLOBIN 10.4 g/dL (13.5-18.0); MEAN CELL VOLUME 95 fl (78-100); MEAN CORPUSCULAR HEMOGLOBIN 28 pg (27-31); MEAN CORPUSCULAR HGB CONC 30 g/dL (33-37); MEAN PLATELET VOLUME 10.4 fl (7.4-10.4); PLATELET COUNT 206 K/mm3 (130-400); RED BLOOD COUNT 3.67 M/mm3 (4.20-5.60); RED CELL DISTRIBUTION WIDTH 14.4 % (11.5-14.5); WHITE BLOOD COUNT 5.5 K/mm3 (4.8-10.8)
[2021-05-03 13:53] LABS: ALBUMIN 4.1 g/dL (3.4-4.8); POTASSIUM 3.8 mmol/L (3.5-5.1)
[2021-05-03 13:54] LABS: CALCIUM 9.3 mg/dL (8.3-10.5)
[2021-05-03 13:56] LABS: TOTAL PROTEIN 7.3 g/dL (6.2-8.1)
[2021-05-03 13:57] LABS: TOTAL BILIRUBIN 0.7 mg/dL (0.2-1.2)
[2021-05-03 14:19] LABS: LYMPHOCYTE 10 % (20-51); MONOCYTE 8 % (3-10); NEUTROPHILS 81 % (42-75)
== END ==
LOC: LAB 13:26
PROVIDERS: Internal Medicine
DX: R06.00 Dyspnea, unspecified (principal)

== ENCOUNTER → 2021-06-29 | Outpatient (CLI) | payer MEDICARE, OTHER ==
[2021-06-29 10:11] LABS: POTASSIUM 4.8 mmol/L (3.5-5.1)
[2021-06-29 10:12] LABS: CALCIUM 9.2 mg/dL (8.3-10.5)
== END ==
LOC: LAB 09:15
PROVIDERS: Internal Medicine Pulmonary Disease
DX: R91.1 Solitary pulmonary nodule (principal)

== ENCOUNTER → 2021-07-20 | Outpatient (CLI) | payer MEDICARE, OTHER ==
[2021-07-20 12:45] LABS: BASO # 0.01 K/mm3 (0.02-0.10); EOS # 0.12 K/mm3 (0.04-0.40); EOS % 2.1 % (0.0-4.0); HEMATOCRIT 32.7 % (42.0-52.0); HEMOGLOBIN 9.9 g/dL (13.5-18.0); LYMPH# 0.76 K/mm3 (1.50-4.00); MEAN CELL VOLUME 95 fl (78-100); MEAN CORPUSCULAR HEMOGLOBIN 29 pg (27-31); MEAN CORPUSCULAR HGB CONC 30 g/dL (33-37); MEAN PLATELET VOLUME 11.2 fl (7.4-10.4); NEU # 3.95 K/mm3 (1.40-6.50); PLATELET COUNT 227 K/mm3 (130-400); RED BLOOD COUNT 3.45 M/mm3 (4.20-5.60); RED CELL DISTRIBUTION WIDTH 15.4 % (11.5-14.5); WHITE BLOOD COUNT 5.7 K/mm3 (4.8-10.8)
[2021-07-20 12:50] LABS: ALBUMIN 4.3 g/dL (3.4-4.8); POTASSIUM 4.6 mmol/L (3.5-5.1)
[2021-07-20 12:51] LABS: CALCIUM 9.7 mg/dL (8.3-10.5)
[2021-07-20 12:52] LABS: TOTAL PROTEIN 7.5 g/dL (6.2-8.1)
== END ==
LOC: LAB 11:45
PROVIDERS: Internal Medicine
DX: Z12.5 Encounter for screening for malignant neoplasm of prostate (principal); I48.19 Other persistent atrial fibrillation; K90.9 Intestinal malabsorption, unspecified; R73.03 Prediabetes

== ENCOUNTER → 2021-07-23 | Outpatient (CLI) | payer MEDICARE, OTHER | LOC: RAD 10:25 | DX: N17.9 Acute kidney failure, unspecified (principal) ==

== ENCOUNTER → 2021-08-02 | Day surgery (SDC) | payer MEDICARE, OTHER | LOC: MSO 07:26 | DX: D50.0 Iron deficiency anemia secondary to blood loss (chronic) (principal); Z79.899 Other long term (current) drug therapy; Z98.890 Other specified postprocedural states | CPT/HCPCS: 00731; J2704; J7120 ==

== ENCOUNTER → 2021-08-23 | Day surgery (SDC) | payer MEDICARE, OTHER | LOC: MSO 08:39 | DX: D12.8 Benign neoplasm of rectum (principal); K57.30 Diverticulosis of large intestine without perforation or abscess without bleeding; D50.0 Iron deficiency anemia secondary to blood loss (chronic); Z79.899 Other long term (current) drug therapy | CPT/HCPCS: 00811; J2704; J7120 ==

== ENCOUNTER → 2021-09-10 | Outpatient (CLI) | payer MEDICARE, OTHER ==
[2021-09-10 09:43] LABS: ALBUMIN 4.3 g/dL (3.4-4.8)
[2021-09-10 09:44] LABS: POTASSIUM 4.7 mmol/L (3.5-5.1)
[2021-09-10 09:45] LABS: CALCIUM 9.5 mg/dL (8.3-10.5)
[2021-09-10 09:46] LABS: TOTAL PROTEIN 7.5 g/dL (6.2-8.1)
[2021-09-10 09:48] LABS: TOTAL BILIRUBIN 0.8 mg/dL (0.2-1.2)
[2021-09-10 09:55] LABS: BASO # 0.02 K/mm3 (0.02-0.10); EOS # 0.11 K/mm3 (0.04-0.40); EOS % 2.2 % (0.0-4.0); HEMATOCRIT 37.8 % (42.0-52.0); HEMOGLOBIN 11.5 g/dL (13.5-18.0); LYMPH# 0.83 K/mm3 (1.50-4.00); MEAN CELL VOLUME 97 fl (78-100); MEAN CORPUSCULAR HEMOGLOBIN 30 pg (27-31); MEAN CORPUSCULAR HGB CONC 30 g/dL (33-37); MEAN PLATELET VOLUME 11.5 fl (7.4-10.4); MONO # 0.57 K/mm3 (0.20-0.80); NEU # 3.37 K/mm3 (1.40-6.50); PLATELET COUNT 201 K/mm3 (130-400); RED BLOOD COUNT 3.89 M/mm3 (4.20-5.60); RED CELL DISTRIBUTION WIDTH 16.1 % (11.5-14.5); WHITE BLOOD COUNT 4.9 K/mm3 (4.8-10.8)
== END ==
LOC: LAB 08:50
PROVIDERS: Internal Medicine
DX: D64.9 Anemia, unspecified (principal); I48.19 Other persistent atrial fibrillation

== ENCOUNTER → 2022-02-05 | Outpatient (CLI) | payer MEDICARE, OTHER ==
[2022-02-05 08:58] LABS: BASO # 0.02 K/mm3 (0.02-0.10); EOS # 0.15 K/mm3 (0.04-0.40); EOS % 2.9 % (0.0-4.0); HEMATOCRIT 38.4 % (42.0-52.0); LYMPH# 0.68 K/mm3 (1.50-4.00); MEAN CELL VOLUME 100 fl (78-100); MEAN CORPUSCULAR HEMOGLOBIN 31 pg (27-31); MEAN CORPUSCULAR HGB CONC 31 g/dL (33-37); MEAN PLATELET VOLUME 11.2 fl (7.4-10.4); MONO # 0.61 K/mm3 (0.20-0.80); NEU # 3.69 K/mm3 (1.40-6.50); PLATELET COUNT 179 K/mm3 (130-400); RED BLOOD COUNT 3.83 M/mm3 (4.20-5.60); RED CELL DISTRIBUTION WIDTH 13.8 % (11.5-14.5); WHITE BLOOD COUNT 5.2 K/mm3 (4.8-10.8)
[2022-02-05 09:02] LABS: ALBUMIN 4.1 g/dL (3.4-4.8); POTASSIUM 4.5 mmol/L (3.5-5.1)
[2022-02-05 09:04] LABS: CALCIUM 9.4 mg/dL (8.3-10.5)
[2022-02-05 09:05] LABS: TOTAL PROTEIN 7.2 g/dL (6.2-8.1)
[2022-02-05 09:07] LABS: TOTAL BILIRUBIN 0.8 mg/dL (0.2-1.2)
[2022-02-05 09:11] LABS: MAGNESIUM 1.8 mg/dL (1.60-2.60)
== END ==
LOC: LAB 08:33
PROVIDERS: Internal Medicine
DX: I25.10 Atherosclerotic heart disease of native coronary artery without angina pectoris (principal); I48.19 Other persistent atrial fibrillation; K90.9 Intestinal malabsorption, unspecified; R73.03 Prediabetes

== ENCOUNTER → 2022-02-07 | Outpatient (CLI) | payer MEDICARE, OTHER | LOC: LAB 09:34 | PROVIDERS: Internal Medicine | DX: E03.2 Hypothyroidism due to medicaments and other exogenous substances (principal); D64.9 Anemia, unspecified; K92.89 Other specified diseases of the digestive system; N17.9 Acute kidney failure, unspecified; G47.01 Insomnia due to medical condition; J43.2 Centrilobular emphysema; I48.19 Other persistent atrial fibrillation; R73.03 Prediabetes; E53.8 Deficiency of other specified B group vitamins; F52.21 Male erectile disorder ==

== ENCOUNTER → 2022-08-27 | Outpatient (CLI) | payer MEDICARE, OTHER | LOC: LAB 15:44 | DX: E03.2 Hypothyroidism due to medicaments and other exogenous substances (principal) ==

== ENCOUNTER → 2022-09-10 | Outpatient (CLI) | payer MEDICARE, OTHER ==
[2022-09-10 09:07] LABS: BASO # 0.01 K/mm3 (0.02-0.10); EOS # 0.12 K/mm3 (0.04-0.40); EOS % 2.1 % (0.0-4.0); HEMATOCRIT 37.6 % (42.0-52.0); LYMPH# 0.76 K/mm3 (1.50-4.00); MEAN CELL VOLUME 100 fl (78-100); MEAN CORPUSCULAR HEMOGLOBIN 32 pg (27-31); MEAN CORPUSCULAR HGB CONC 32 g/dL (33-37); MEAN PLATELET VOLUME 11.1 fl (7.4-10.4); MONO # 0.66 K/mm3 (0.20-0.80); PLATELET COUNT 193 K/mm3 (130-400); RED BLOOD COUNT 3.76 M/mm3 (4.20-5.60); RED CELL DISTRIBUTION WIDTH 12.9 % (11.5-14.5); WHITE BLOOD COUNT 5.7 K/mm3 (4.8-10.8)
[2022-09-10 09:10] LABS: ALBUMIN 4.1 g/dL (3.4-4.8)
[2022-09-10 09:11] LABS: POTASSIUM 4.7 mmol/L (3.5-5.1)
[2022-09-10 09:12] LABS: CALCIUM 9.7 mg/dL (8.3-10.5)
[2022-09-10 09:13] LABS: TOTAL PROTEIN 7.1 g/dL (6.2-8.1)
[2022-09-10 09:15] LABS: TOTAL BILIRUBIN 0.7 mg/dL (0.2-1.2)
[2022-09-10 09:20] LABS: MAGNESIUM 1.8 mg/dL (1.60-2.60)
== END ==
LOC: LAB 08:17
PROVIDERS: Internal Medicine
DX: R73.03 Prediabetes (principal); I48.19 Other persistent atrial fibrillation; D64.9 Anemia, unspecified; N17.9 Acute kidney failure, unspecified; K92.89 Other specified diseases of the digestive system; G47.01 Insomnia due to medical condition; J43.2 Centrilobular emphysema; E03.2 Hypothyroidism due to medicaments and other exogenous substances; E53.8 Deficiency of other specified B group vitamins; F52.21 Male erectile disorder

== ENCOUNTER → 2023-07-03 | Outpatient (CLI) | payer MEDICARE, OTHER | LOC: LAB 09:04 | DX: E03.2 Hypothyroidism due to medicaments and other exogenous substances (principal) ==

== ENCOUNTER → 2023-11-17 | Outpatient (CLI) | payer MEDICARE, OTHER ==
[~2023-11-17] MED LIST changes: +ATORVASTATIN CA80 MG PO; +CARDIZEM CD 18180 MG PO; +DIAZEPAM10 MG PO; +ESCITALOPRAM10 MG PO; +LEVOTHYROXIN0.025 MG PO; +OMEPRAZOLE40 MG PO; +PREDNISONE20 MG PO; +TRELEGY ELLIPT1 EACH IH; +XARELTO20 MG PO; +ZOLPIDEM TART10 MG PO
== END ==
LOC: RAD 11:49
DX: M19.011 Primary osteoarthritis, right shoulder (principal)

== ENCOUNTER → 2024-02-20 | Outpatient (CLI) | payer MEDICARE, OTHER ==
[2024-02-20 09:02] LABS: BASO # 0.01 K/mm3 (0.02-0.10); EOS # 0.16 K/mm3 (0.04-0.40); HEMATOCRIT 38.2 % (42.0-52.0); HEMOGLOBIN 12.1 g/dL (13.5-18.0); LYMPH# 0.81 K/mm3 (1.50-4.00); MEAN CELL VOLUME 99 fl (78-100); MEAN CORPUSCULAR HEMOGLOBIN 31 pg (27-31); MEAN CORPUSCULAR HGB CONC 32 g/dL (33-37); MEAN PLATELET VOLUME 10.8 fl (7.4-10.4); NEU # 2.39 K/mm3 (1.40-6.50); PLATELET COUNT 191 K/mm3 (130-400); RED BLOOD COUNT 3.87 M/mm3 (4.20-5.60); RED CELL DISTRIBUTION WIDTH 13.2 % (11.5-14.5)
[2024-02-20 09:09] LABS: ALBUMIN 4.2 g/dL (3.4-4.8)
[2024-02-20 09:10] LABS: CALCIUM 9.8 mg/dL (8.3-10.5)
[2024-02-20 09:11] LABS: TOTAL PROTEIN 7.1 g/dL (6.2-8.1)
[2024-02-20 09:13] LABS: TOTAL BILIRUBIN 0.5 mg/dL (0.2-1.2)
[2024-02-20 09:18] LABS: MAGNESIUM 1.87 mg/dL (1.60-2.60)
[2024-02-20 10:30] LABS: PH-URINE 5.5 (5.0 - 8.0); URINE APPEARANCE CLEAR (CLEAR); URINE BILIRUBIN NEGATIVE (NEGATIVE); URINE COLOR YELLOW (YELLOW); URINE GLUCOSE NEGATIVE (NEGATIVE); URINE KETONE NEGATIVE (NEGATIVE); URINE NITRATE NEGATIVE (NEGATIVE); URINE PROTEIN(semi-quant) NEGATIVE (NEGATIVE)
[2024-02-20 10:31] LABS: URINE BLOOD 2+ (NEGATIVE); URINE LEUKOCYTE ESTERASE NEGATIVE (NEGATIVE)
[2024-02-20 10:32] LABS: URINE MUCUS PRESENT (NOT PRESENT)
[2024-02-23 13:57] LABS: TESTOSTERONE 330 ng/dL (221-716)
== END ==
LOC: LAB 08:34
PROVIDERS: Internal Medicine
DX: Z12.5 Encounter for screening for malignant neoplasm of prostate (principal); Z12.11 Encounter for screening for malignant neoplasm of colon; I25.10 Atherosclerotic heart disease of native coronary artery without angina pectoris; E03.2 Hypothyroidism due to medicaments and other exogenous substances; R73.03 Prediabetes; K90.9 Intestinal malabsorption, unspecified; F52.21 Male erectile disorder

== ENCOUNTER → 2024-08-12 | Outpatient (CLI) | payer MEDICARE, OTHER ==
[2024-08-12 11:53] LABS: HEMATOCRIT 40.9 % (42.0-52.0); HEMOGLOBIN 12.7 g/dL (13.5-18.0); MEAN CELL VOLUME 101 fl (78-100); MEAN CORPUSCULAR HEMOGLOBIN 31 pg (27-31); MEAN CORPUSCULAR HGB CONC 31 g/dL (33-37); MEAN PLATELET VOLUME 10.9 fl (7.4-10.4); PLATELET COUNT 191 K/mm3 (130-400); RED BLOOD COUNT 4.06 M/mm3 (4.20-5.60); WHITE BLOOD COUNT 5.3 K/mm3 (4.8-10.8)
[2024-08-12 12:41] LABS: URINE APPEARANCE CLEAR (CLEAR); URINE BILIRUBIN NEGATIVE (NEGATIVE); URINE BLOOD NEGATIVE (NEGATIVE); URINE COLOR YELLOW (YELLOW); URINE GLUCOSE NEGATIVE (NEGATIVE); URINE KETONE NEGATIVE (NEGATIVE); URINE LEUKOCYTE ESTERASE NEGATIVE (NEGATIVE); URINE NITRATE NEGATIVE (NEGATIVE); URINE PROTEIN(semi-quant) NEGATIVE (NEGATIVE)
[2024-08-12 12:56] LABS: ALBUMIN 4.2 g/dL (3.4-4.8)
[2024-08-12 12:57] LABS: CALCIUM 9.5 mg/dL (8.3-10.5)
[2024-08-12 12:58] LABS: TOTAL PROTEIN 7.7 g/dL (6.2-8.1)
[2024-08-12 13:00] LABS: TOTAL BILIRUBIN 1.1 mg/dL (0.2-1.2)
[2024-08-12 13:05] LABS: LYMPHOCYTE 12 % (20-51); MAGNESIUM 1.72 mg/dL (1.60-2.60); MONOCYTE 5 % (3-10); NEUTROPHILS 81 % (42-75)
== END ==
LOC: LAB 11:29
PROVIDERS: Internal Medicine
DX: Z12.5 Encounter for screening for malignant neoplasm of prostate (principal); Z12.11 Encounter for screening for malignant neoplasm of colon; I25.10 Atherosclerotic heart disease of native coronary artery without angina pectoris; E03.2 Hypothyroidism due to medicaments and other exogenous substances; R73.03 Prediabetes; I48.19 Other persistent atrial fibrillation; K90.9 Intestinal malabsorption, unspecified; E78.2 Mixed hyperlipidemia